=== PATIENT | male | born 1990 | race African-American/Black ===

== ENCOUNTER 2018-06-29 04:28 | Emergency (ER) | payer MEDICAID ==
[2018-06-29] MEDS: BUPIVACAINE HCL 0.5% 30 ML VIAL SC (05:30)
[2018-06-29] MEDS: CETACAINE SPRAY 5GM TOP (05:45)
[2018-06-29] MEDS: NORCO 5/325MG TABLET (BULK FOR ED) PO (06:06)
== END 2018-06-29 06:09 | disposition home or self-care (01) ==
LOC: M ED 04:28
DX: S02.5XXA Fracture of tooth (traumatic), initial encounter for closed fracture (principal); X58.XXXA Exposure to other specified factors, initial encounter; Y92.89 Other specified places as the place of occurrence of the external cause
CPT/HCPCS: 99283

== ENCOUNTER 2018-07-04 02:46 | Emergency (ER) | payer MEDICAID ==
[2018-07-04] MEDS: LIDOCAINE 1% SDV 5 ML VIAL DILUENT (05:23)
[2018-07-04] MEDS: cefTRIAXone SOD 250 MG VIAL (J0696) IM (05:23)
[2018-07-04] MEDS: AZITHROMYCIN 250 MG TAB PO (05:23)
[2018-07-04 05:31] LABS: KETONE, URINE AUTO RFX NEGATIVE (NEGATIVE); LEUKOCYTE ESTERASE UR AUTO RFX NEGATIVE (NEGATIVE); MUCUS, URINE RFX SMALL (NEGATIVE); NITRITE, URINE AUTO RFX NEGATIVE (NEGATIVE); RBC, URINE AUTO RFX 1 /HPF (0-3); SPECIFIC GRAVITY UR AUTO RFX 1.032 (1.002-1.035); SQUAM EPITHELIAL CELL UR AURFX 0 /HPF (0-6); WBC, URINE AUTO RFX 1 /HPF (0-3)
[2018-07-04 07:52] LABS: CHLAMYDIA DNA AMPLIFICATION NEGATIVE (NEGATIVE); GC DNA AMPLIFICATION NEGATIVE (NEGATIVE)
== END 2018-07-04 05:46 | disposition home or self-care (01) ==
LOC: M ED 02:46
DX: N34.1 Nonspecific urethritis (principal); F17.210 Nicotine dependence, cigarettes, uncomplicated
CPT/HCPCS: J0696

== ENCOUNTER 2018-09-27 15:51 | Emergency (ER) | payer MEDICAID, OTHER ==
[~2018-09-27] VITALS: Ht 167.6 cm; Wt 72.4 kg
[~2018-09-27 15:51] MED LIST: CLEO300C2 PO
[2018-09-27] MEDS ORDERED: metroNIDAZOLE (FLAGYL) 500 MG TAB PO ONE (16:15)
[2018-09-27] MEDS ORDERED: cefTRIAXone SOD 250 MG VIAL (J0696) IM ONE (16:15)
[2018-09-27] MEDS ORDERED: LIDOCAINE 1% SDV 5 ML VIAL DILUENT ONE (16:15)
[2018-09-27] MEDS ORDERED: AZITHROMYCIN 250 MG TAB PO ONE (16:15)
[2018-09-27 17:22] VITALS: BP 124/79
[2018-09-27 18:03] LABS: CHLAMYDIA DNA AMPLIFICATION POSITIVE (NEGATIVE); GC DNA AMPLIFICATION NEGATIVE (NEGATIVE)
[2018-09-28 10:24] LABS: HEPATITIS B SURFACE ANTIBODY POSITIVE (POSITIVE); HEPATITIS B SURFACE ANTIGEN NEGATIVE (NEGATIVE); HEPATITIS C VIRUS ABY INDEX < 0.0 INDEX (<0.8); HIV 1&2 SCREEN CENTAUR NEGATIVE (NEGATIVE)
== END 2018-09-27 17:24 | disposition home or self-care (01) ==
LOC: M ED 15:51
DX: Z20.2 Contact with and (suspected) exposure to infections with a predominantly sexual mode of transmission (principal)
CPT/HCPCS: 36415; 86706; 86780; 86803; 87340; 87389; 87491; 87591; 96372; 99283; J0696

== ENCOUNTER 2018-10-12 01:23 | Emergency (ER) | payer OTHER ==
[~2018-10-12] VITALS: Ht 167.6 cm; Wt 72.7 kg
[2018-10-12 01:23] VITALS: BP 133/77
[2018-10-12 04:31] LABS: CHLAMYDIA DNA AMPLIFICATION NEGATIVE (NEGATIVE); GC DNA AMPLIFICATION NEGATIVE (NEGATIVE)
== END 2018-10-12 05:13 | disposition home or self-care (01) ==
LOC: M ED 01:23
DX: Z20.2 Contact with and (suspected) exposure to infections with a predominantly sexual mode of transmission (principal); F17.210 Nicotine dependence, cigarettes, uncomplicated

== ENCOUNTER 2018-12-11 04:21 | Emergency (ER) | payer OTHER ==
[~2018-12-11] VITALS: Ht 167.6 cm; Wt 63.6 kg
[2018-12-11 04:21] VITALS: BP 127/79
== END 2018-12-11 05:18 | disposition left against medical advice (07) ==
LOC: M ED 04:21
DX: Z20.2 Contact with and (suspected) exposure to infections with a predominantly sexual mode of transmission (principal); Z53.21 Procedure and treatment not carried out due to patient leaving prior to being seen by health care provider

== ENCOUNTER 2018-12-25 01:37 | Emergency (ER) | payer OTHER ==
[2018-12-25 02:00] VITALS: BP 119/75
== END 2018-12-25 02:10 | disposition home or self-care (01) ==
LOC: M ED 01:37
DX: H57.9 Unspecified disorder of eye and adnexa (principal); Z77.098 Contact with and (suspected) exposure to other hazardous, chiefly nonmedicinal, chemicals; Z72.0 Tobacco use

== ENCOUNTER → 2019-02-01 | Outpatient (REF) | payer OTHER ==
[2019-02-01 22:19] LABS: CHLAMYDIA DNA AMPLIFICATION NEGATIVE (NEGATIVE); GC DNA AMPLIFICATION NEGATIVE (NEGATIVE)
== END ==
LOC: M LAB REF 16:17
PROVIDERS: ATTEND Surgery
DX: R30.0 Dysuria (principal)

== ENCOUNTER 2019-07-31 04:42 | Emergency (ER) | payer OTHER, SELFPAY ==
[~2019-07-31] VITALS: Ht 167.6 cm; Wt 75.9 kg
[2019-07-31 04:42] VITALS: BP 149/80
[2019-07-31] MEDS ORDERED: DOXY100C37 PO (05:58)
[2019-07-31] MEDS ORDERED: LIDOCAINE 1% SDV 5 ML VIAL DILUENT ONE (06:00)
[2019-07-31] MEDS ORDERED: cefTRIAXone SOD 1 GM VIAL (J0696) IM ONE (06:00)
[2019-07-31 06:29] LABS: CHLAMYDIA DNA AMPLIFICATION NEGATIVE (NEGATIVE); GC DNA AMPLIFICATION POSITIVE (NEGATIVE)
[2019-07-31] MEDS ORDERED: VALT1TAB PO (06:41)
== END 2019-07-31 06:52 | disposition home or self-care (01) ==
LOC: M ED 04:42
DX: N34.2 Other urethritis (principal); F17.200 Nicotine dependence, unspecified, uncomplicated
CPT/HCPCS: 87491; 87591; 96372; 99283; J0696

== ENCOUNTER → 2020-05-15 | Outpatient (REF) | payer OTHER ==
[~2020-05-15] MED LIST changes: +DOXY100C37 PO; +VALT1TAB PO
== END ==
LOC: M LAB REF 15:53
PROVIDERS: ATTEND Surgery
DX: Z20.828 Contact with and (suspected) exposure to other viral communicable diseases (principal)